=== PATIENT | female | born 1975 | race Caucasian/White ===

== ENCOUNTER 2018-06-09 14:05 | Emergency (ER) | payer OTHER ==
[~2018-06-09] VITALS: Ht 154.9 cm; Wt 54.4 kg
--- NOTE | 2018-06-09 14:55 | NUR ---
Dr Catalan at the bedside for MSE.
[2018-06-09 15:14] VITALS: BP 103/68
--- NOTE | 2018-06-09 15:14 | NUR ---
Patient discharged to home in stable conditon. Written and verbal after care instructions given. Patient verbalizes understanding of instructions.
== END 2018-06-09 15:15 | disposition home or self-care (01) ==
LOC: ER 14:05
DX: L50.9 Urticaria, unspecified (principal)
CPT/HCPCS: A4663

== ENCOUNTER 2019-10-28 23:27 | Emergency (ER) | payer OTHER ==
[~2019-10-28] VITALS: Ht 162.6 cm; Wt 55.3 kg
[2019-10-29] MEDS ORDERED: IV NORMAL SALINE 1000 ML BAG IV ONE (00:15)
[2019-10-29] MEDS ORDERED: HYDROMORPHONE 1 MG/1 ML DISP.SYRIN IV ONE (00:15)
[2019-10-29] MEDS ORDERED: ONDANSETRON 4 MG/2 ML VIAL IV ONE ×2 (00:15→03:00)
[2019-10-29] MEDS ORDERED: HYDROMORPHONE 1 MG/1 ML DISP.SYRIN ONE (00:25)
[2019-10-29] MEDS ORDERED: ONDANSETRON 4 MG/2 ML VIAL ONE ×2 (00:25→02:53)
[2019-10-29 00:36] LABS: CARBON DIOXIDE 26 mmol/L (21-32); CHLORIDE 103 mmol/L (98-107); CREATININE 0.5 mg/dL (0.6-1.3); GLUCOSE 94 mg/dL (74-106); POTASSIUM 3.6 mmol/L (3.5-5.1); UREA NITROGEN, BLOOD 6 mg/dL (7-18)
[2019-10-29 00:41] LABS: BASOPHILS % (AUTO) 0.2 % (0.0-2.0); EOSINOPHILS % (AUTO) 0.7 % (0.0-7.0); HEMATOCRIT 40.2 % (31.2-41.9); HEMOGLOBIN 13.4 g/dL (10.9-14.3); LYMPHOCYTES # (AUTO) 0.5 K/uL (20.0-40.0); LYMPHOCYTES % (AUTO) 9.4 % (20.5-51.5); MEAN CORPUSCULAR HEMOGLOBIN 28.8 uug (24.7-32.8); MEAN CORPUSCULAR HGB CONC 33 g/dL (32.3-35.6); MEAN CORPUSCULAR VOLUME 86.6 fL (75.5-95.3); MONOCYTES # (AUTO) 0.3 K/uL (2.0-10.0); MONOCYTES % (AUTO) 5.3 % (0.0-11.0); NEUTROPHILS # (AUTO) 4.7 K/uL (1.8-8.9); NEUTROPHILS % (AUTO) 84.4 % (38.5-71.5); PLATELET COUNT (AUTO) 283 K/uL (179-408); RED BLOOD CELL COUNT(AUTO) 4.64 MIL/uL (3.63-4.92); WHITE BLOOD COUNT (AUTO) 5.5 K/uL (3.8-11.8)
[2019-10-29 00:42] LABS: ALANINE AMINOTRANSFERASE 11 U/L (14-59); ALKALINE PHOSPHATASE 65 U/L (50-136); ASPARTATE AMINOTRANSFERASE 13 U/L (15-37); BILIRUBIN,DIRECT 0.2 mg/dL (0.0-0.2); BILIRUBIN,TOTAL 1.3 mg/dL (0.2-1.0); LIPASE 89 U/L (73-393); TOTAL PROTEIN, SERUM 7.1 g/dL (6.4-8.2)
[2019-10-29 00:47] LABS: *BILIRUBIN,URIN NEGATIVE (NEGATIVE); *BLOOD, URINE NEGATIVE (NEGATIVE); *CLARITY,URINE CLEAR (CLEAR); *COLOR,URINE YELLOW (YELLOW); *KETONES,URINE NEGATIVE (NEGATIVE); *UROBILINOGEN,URINE 0.2 E.U./dl (NORMAL); LEUKOCYTE ESTERASE ,URINE NEGATIVE (NEGATIVE); NITRITE, URINE NEGATIVE (NEGATIVE); UGLUCOSE NEGATIVE (NEGATIVE)
[2019-10-29] MEDS ORDERED: PANTOPRAZOLE SODIUM 40 MG VIAL ONE (02:53)
[2019-10-29] MEDS ORDERED: PANTOPRAZOLE SODIUM 40 MG VIAL IV ONE (03:00)
--- NOTE | 2019-10-29 03:00 | NUR ---
IV removed. Catheter intact and site benign. Pressure and 4x4 gauze applied to site. No bleeding noted.
--- NOTE | 2019-10-29 03:03 | NUR ---
Patient discharged to home in stable conditon with family taking patient home. Written and verbal after care instructions given. Patient verbalizes understanding of instructions. Walked out of ER with no distress noted.
[2019-10-29 03:06] VITALS: BP 105/68
== END 2019-10-29 03:07 | disposition home or self-care (01) ==
LOC: ER 23:30
DX: K20.9 Esophagitis, unspecified (principal)
CPT/HCPCS: 36415; 74176; 80048; 80076; 81001; 83690; 84702; 85025; 96361; 96374; 96375; 96376; 99284; C9113; J1170; J2405 ×2; A4663; J7030

== ENCOUNTER 2025-06-23 22:01 | Emergency (ER) | payer OTHER ==
[~2025-06-23] VITALS: Ht 157.5 cm; Wt 72.6 kg
[2025-06-23] MEDS ORDERED: ONDANSETRON 4 MG/2 ML VIAL ONE (22:21)
[2025-06-23] MEDS ORDERED: MORPHINE SULFATE 2 MG/1 ML DISP.SYRIN ONE (22:21)
[2025-06-23 22:29] LABS: PLATELET COUNT (AUTO) 362 K/uL (179-408); RED BLOOD CELL COUNT(AUTO) 4.57 MIL/uL (3.63-4.92); RED CELL DISTRIBUTION WIDTH 14.4 % (12.3-17.7); WHITE BLOOD COUNT (AUTO) 8.3 K/uL (3.8-11.8)
[2025-06-23] MEDS: MORPHINE SULFATE 2 MG/1 ML DISP.SYRIN IV ONE (22:31)
[2025-06-23] MEDS: ONDANSETRON 4 MG/2 ML VIAL IV ONE (22:31)
[2025-06-23] MEDS: IV NS 1000 ML 1,000 ML IV ONE (22:31)
[2025-06-23 22:33] LABS: *BILIRUBIN,URIN NEGATIVE (NEGATIVE); *BLOOD, URINE 2+ (NEGATIVE); *CLARITY,URINE CLEAR (CLEAR); *COLOR,URINE YELLOW (YELLOW); *KETONES,URINE 1+ (NEGATIVE); *PROTEIN,URINE NEGATIVE (NEGATIVE); *UROBILINOGEN,URINE 0.2 E.U./dl (NORMAL); LEUKOCYTE ESTERASE ,URINE 1+ (NEGATIVE); NITRITE, URINE NEGATIVE (NEGATIVE); UGLUCOSE NEGATIVE (NEGATIVE)
[2025-06-23 22:35] LABS: CREATININE 0.5 mg/dL (0.6-1.3); SODIUM SERUM 144 mmol/L (136-145); UREA NITROGEN, BLOOD 12 mg/dL (7-18)
[2025-06-23 22:40] LABS: ASPARTATE AMINOTRANSFERASE 12 U/L (15-37); LACTATE DEHYDROGENASE 180 U/L (81-234); TOTAL PROTEIN, SERUM 7.6 g/dL (6.4-8.2)
[2025-06-23 22:47] LABS: SQUAMOUS EPITHELIAL CELL,UR FEW /HPF (NONE SEEN)
[2025-06-23] MEDS ORDERED: CEFTRIAXONE /D5W 50ML IVPB **ER PYXIS IV ONE (23:52)
[2025-06-24] MEDS ORDERED: HYDR-4209 PO ×2 (00:15→00:55)
[2025-06-24] MEDS ORDERED: LEVO500T90 PO (00:15)
[2025-06-24] MEDS ORDERED: HYDROMORPHONE 1 MG/1 ML DISP.SYRIN ONE (00:18)
[2025-06-24] MEDS ORDERED: ONDANSETRON 4 MG/2 ML VIAL ONE (00:18)
[2025-06-24] MEDS: HYDROMORPHONE 1 MG/1 ML DISP.SYRIN IV ONE (00:25)
[2025-06-24] MEDS: ONDANSETRON 4 MG/2 ML VIAL IV ONE (00:25)
[2025-06-24 01:15] VITALS: BP 131/74
[2025-06-24 01:17] VITALS: BP 131/74; TEMP 208.9; O2SAT 98
== END 2025-06-24 01:17 | disposition home or self-care (01) ==
LOC: ER 22:01
DX: R10.9 Unspecified abdominal pain (principal); R11.0 Nausea; Z79.891 Long term (current) use of opiate analgesic
CPT/HCPCS: 99285; 76705; 74176; 96374; 96375 ×2; 96361; 80053; 81001; 83615; 83690; 85025; 87040; 87186; 87086; 87077; 36415; 76856; 83605; 96376; J0696; J2405 ×2; J2270; J7040; J1171; A4606; A4663